=== PATIENT | female | born 1970 | race Caucasian/White ===

== ENCOUNTER → 2017-06-10 | Outpatient (CLI) | payer BC, MEDICAID ==
--- NOTE | 2017-06-10 09:38 | Diagnostic Imaging Report ---
INDICATION: Right knee pain post fall. TECHNIQUE: The MRI of the right knee was obtained without IV contrast. FINDINGS: The regional marrow signal appears unremarkable. There is a minimal joint effusion. The patellar tendon and quadriceps tendon are intact. The anterior and posterior cruciate ligaments are intact. The medial and lateral collateral ligament complexes appear intact. The lateral meniscus appears intact. The medial meniscus shows some intrasubstance signal, compatible with degenerative change, with a questionable faint area of signal abnormality extending to the inferior articular surface suggesting a faint tear. IMPRESSION: There are degenerative changes of the medial meniscus with a questionable area of signal abnormality extending to the inferior articular surface suggesting a faint tear. The remaining structures appear intact. There is no occult fracture or marrow edema. There is a minimal joint effusion. Dictated by: Dictated on workstation # [id number]
== END ==
LOC: RAD 07:33
PROVIDERS: ATTEND Nurse Practitioner
DX: M17.11 Unilateral primary osteoarthritis, right knee (principal)
CPT/HCPCS: 73721